=== PATIENT | female | born 1985 | race Caucasian/White ===

== ENCOUNTER 2021-10-17 13:57 | Inpatient (IN) | payer OTHER ==
[2021-10-17 15:18] VITALS: BMI 22.6
[2021-10-17] MEDS ORDERED: NALOXONE HCL (KLOXXADO) 8 MG SPRAY NS PRN (15:42)
[2021-10-17] MEDS ORDERED: cloNIDine HCL 0.1 MG TABLET PO ONE (15:42)
[2021-10-17] MEDS ORDERED: BISMUTH SUBSALICYLATE 524 MG/30 ML PO PRN (15:42)
[2021-10-17] MEDS ORDERED: ACETAMINOPHEN 325 MG TABLET (FP) PO PRN ×2 (15:42)
[2021-10-17] MEDS ORDERED: NICOTINE 10 MG CARTRIDGE (INHALER) IH PRN (15:42)
[2021-10-17] MEDS ORDERED: BUPRENORPHINE HCL 150 MCG, BUPRENORPHINE HCL 75 MCG BC ONE (15:42)
[2021-10-17] MEDS ORDERED: BUPRENORPHINE HCL 150 MCG, BUPRENORPHINE HCL 75 MCG BC PRN (15:42)
[2021-10-17] MEDS ORDERED: MAGNESIUM CITRATE 300 ML BOTTLE PO PRN (15:42)
[2021-10-17] MEDS ORDERED: IBUPROFEN 400 MG TABLET (FP) PO PRN (15:42)
[2021-10-17] MEDS ORDERED: DICYCLOMINE HCL 10 MG CAPSULE PO PRN (15:42)
[2021-10-17] MEDS ORDERED: BENZOCAINE/MENTHOL (CHLORASEPTIC ) LOZENGE MM PRN (15:42)
[2021-10-17] MEDS ORDERED: ONDANSETRON *ODT* 4 MG TABLET SL PRN (15:42)
[2021-10-17] MEDS ORDERED: MAG HYDROX/AL HYDROX/SIMETH 30 ML UNIT-DOSE CUP PO PRN (15:42)
[2021-10-17] MEDS ORDERED: MAGNESIUM HYDROX 2400MG/30ML ORAL SUSPENSION 30 ML CUP PO PRN (15:42)
[2021-10-17] MEDS ORDERED: BUPRENORPHINE HCL 150 MCG FILM BC ONE (15:58)
[2021-10-17] MEDS ORDERED: BUPRENORPHINE HCL 75 MCG FILM BC ONE (16:04)
[2021-10-17] MEDS ORDERED: hydrOXYzine PAMOATE 25 MG CAPSULE (FP) PO ONE (17:00)
[2021-10-17] MEDS: hydrOXYzine PAMOATE 25 MG CAPSULE (FP) PO SCH ×2 (17:06→21:45)
[2021-10-17] MEDS: diazePAM 5 MG TABLET PO PRN (17:28)
[2021-10-17] MEDS: IBUPROFEN 600 MG TABLET (FP) PO PRN (17:29)
[2021-10-17] MEDS: MELATONIN 5 MG TABLETS PO SCH (21:45)
[2021-10-17] MEDS: THIAMINE HCL 100 MG TABLET (FP) PO SCH (21:45)
[2021-10-17] MEDS: cloNIDine HCL 0.1 MG TABLET PO PRN (21:45)
[2021-10-18] MEDS ORDERED: BUPRENORPHINE HCL 150 MCG, BUPRENORPHINE HCL 75 MCG BC PRN
[2021-10-18] MEDS: METHOCARBAMOL 500 MG TABLET PO PRN ×2 (02:12→14:42)
[2021-10-18] MEDS: IBUPROFEN 600 MG TABLET (FP) PO PRN (02:13)
[2021-10-18] MEDS: diazePAM 5 MG TABLET PO PRN ×3 (02:14→18:45)
[2021-10-18] MEDS: cloNIDine HCL 0.1 MG TABLET PO PRN (06:29)
[2021-10-18] MEDS: BUPRENORPHINE HCL 150 MCG, BUPRENORPHINE HCL 75 MCG BC SCH ×2 (06:29→18:11)
[2021-10-18] MEDS: hydrOXYzine PAMOATE 25 MG CAPSULE (FP) PO SCH ×5 (06:32→21:41)
[2021-10-18] MEDS: PRENATAL VITAMINS W/ FOLIC ACID TABLET (FP) PO SCH (10:10)
[2021-10-18 11:41] LABS: HEMATOCRIT 34.2 % (32.4-45.2); HEMOGLOBIN 11.7 GM/dL (10.7-15.3); MCH 30.7 pg (25.7-33.7); MCHC 34.2 g/dl (32.0-36.0); MEAN CELL VOLUME 89.6 fl (80-96); MEAN PLT VOLUME 9.4 fl (7.5-11.1); PLATELET COUNT 244 10^3/uL (134-434); RBC 3.82 M/mm3 (3.60-5.2); RDW 13.8 % (11.6-15.6); WHITE BLOOD COUNT 8.1 K/mm3 (4.0-10.0)
[2021-10-18 11:59] LABS: BLOOD UREA NITROGEN 11.1 mg/dL (7-18); CALCIUM 9.6 mg/dL (8.5-10.1)
[2021-10-18 12:02] LABS: CREATININE 0.7 mg/dL (0.55-1.3)
[2021-10-18 12:05] LABS: BILIRUBIN,TOTAL 0.8 mg/dL (0.2-1); TOT PROT 7.7 g/dl (6.4-8.2)
[2021-10-18] MEDS: LOPERAMIDE HCL 2 MG CAPSULE PO PRN (18:45)
[2021-10-18] MEDS: MELATONIN 5 MG TABLETS PO SCH (21:41)
[2021-10-18] MEDS: THIAMINE HCL 100 MG TABLET (FP) PO SCH (21:41)
[2021-10-19] MEDS: BUPRENORPHINE HCL 450 MCG FILM BC SCH ×2 (05:53→17:54)
[2021-10-19] MEDS: diazePAM 5 MG TABLET PO PRN (05:53)
[2021-10-19] MEDS: hydrOXYzine PAMOATE 25 MG CAPSULE (FP) PO SCH ×5 (05:54→22:47)
[2021-10-19] MEDS: PRENATAL VITAMINS W/ FOLIC ACID TABLET (FP) PO SCH (10:52)
[2021-10-19] MEDS: LOPERAMIDE HCL 2 MG CAPSULE PO PRN (10:53)
[2021-10-19] MEDS: MELATONIN 5 MG TABLETS PO SCH (22:47)
[2021-10-19] MEDS: THIAMINE HCL 100 MG TABLET (FP) PO SCH (22:47)
[2021-10-19] MEDS: METHOCARBAMOL 500 MG TABLET PO PRN (22:48)
[2021-10-20] MEDS: cloNIDine HCL 0.1 MG TABLET PO PRN (02:10)
[2021-10-20] MEDS: BUPRENORPHINE/NALOXONE 4 MG/1 MG FILM PACKET SL SCH ×2 (05:57→17:46)
[2021-10-20] MEDS: hydrOXYzine PAMOATE 25 MG CAPSULE (FP) PO SCH ×6 (05:58→22:22)
[2021-10-20] MEDS: PRENATAL VITAMINS W/ FOLIC ACID TABLET (FP) PO SCH (10:35)
[2021-10-20] MEDS: LOPERAMIDE HCL 2 MG CAPSULE PO PRN (10:37)
[2021-10-20] MEDS: METHOCARBAMOL 500 MG TABLET PO PRN ×2 (15:37→22:22)
[2021-10-20 17:48] VITALS: RESP 18
[2021-10-20] MEDS: MELATONIN 5 MG TABLETS PO SCH (22:21)
[2021-10-20] MEDS: THIAMINE HCL 100 MG TABLET (FP) PO SCH (22:22)
[2021-10-21] MEDS ORDERED: BUPRENORPHINE/NALOXONE 8 MG/2 MG FILM PACKET SL ONE (06:00)
[2021-10-21] MEDS: hydrOXYzine PAMOATE 25 MG CAPSULE (FP) PO SCH ×2 (06:30→10:29)
[2021-10-21 09:15] VITALS: BP 101/58; PULSE 77; TEMP 98.2
[2021-10-21] MEDS: PRENATAL VITAMINS W/ FOLIC ACID TABLET (FP) PO SCH (10:29)
== END 2021-10-21 10:25 | disposition home or self-care (01) | DRG 773 ==
LOC: YASAS 13:57 → Y3N 17:02
PROVIDERS: ADMIT Allergy & Immunology; ATTEND Surgery
PROC: HZ2ZZZZ Detoxification Services for Substance Abuse Treatment (ICD-10-PCS; principal; 2021-10-17)
DX: F11.23 Opioid dependence with withdrawal (principal); M54.59 Other low back pain; G89.29 Other chronic pain; R76.11 Nonspecific reaction to tuberculin skin test without active tuberculosis
CPT/HCPCS: 36415; 80053; 81025; 85027; 86780; 93005; 93010; C9803-CS; Q0162; U0003; U0005

== ENCOUNTER 2022-02-03 10:35 | Inpatient (IN) | payer OTHER ==
[2022-02-03 12:06] VITALS: BMI 22.6
[2022-02-03] MEDS ORDERED: METHOCARBAMOL 500 MG TABLET PO PRN (13:01)
[2022-02-03] MEDS ORDERED: IBUPROFEN 600 MG TABLET (FP) PO PRN (13:01)
[2022-02-03] MEDS ORDERED: BUPRENORPHINE HCL 150 MCG, BUPRENORPHINE HCL 75 MCG BC PRN (13:01)
[2022-02-03] MEDS ORDERED: BENZOCAINE/MENTHOL (CHLORASEPTIC ) LOZENGE MM PRN (13:01)
[2022-02-03] MEDS ORDERED: IBUPROFEN 400 MG TABLET (FP) PO PRN (13:01)
[2022-02-03] MEDS ORDERED: ACETAMINOPHEN 325 MG TABLET (FP) PO PRN ×2 (13:01)
[2022-02-03] MEDS ORDERED: POLYETHYLENE GLYCOL (HEALTHYLAX) 3350 17 GM PACKET PO PRN (13:01)
[2022-02-03] MEDS ORDERED: NALOXONE HCL (KLOXXADO) 8 MG SPRAY NS PRN (13:01)
[2022-02-03] MEDS ORDERED: NICOTINE 10 MG CARTRIDGE (INHALER) IH PRN (13:01)
[2022-02-03] MEDS ORDERED: cloNIDine HCL 0.1 MG TABLET PO ONE (13:01)
[2022-02-03] MEDS ORDERED: MAG HYDROX/AL HYDROX/SIMETH 30 ML UNIT-DOSE CUP PO PRN (13:01)
[2022-02-03] MEDS ORDERED: DICYCLOMINE HCL 10 MG CAPSULE PO PRN (13:01)
[2022-02-03] MEDS ORDERED: ONDANSETRON *ODT* 4 MG TABLET SL PRN (13:01)
[2022-02-03] MEDS ORDERED: MAGNESIUM HYDROX 2400MG/30ML ORAL SUSPENSION 30 ML CUP PO PRN (13:01)
[2022-02-03] MEDS ORDERED: BUPRENORPHINE HCL 150 MCG, BUPRENORPHINE HCL 75 MCG BC ONE (13:01)
[2022-02-03] MEDS ORDERED: LOPERAMIDE HCL 2 MG CAPSULE PO PRN (13:01)
[2022-02-03] MEDS ORDERED: BISMUTH SUBSALICYLATE 524 MG/30 ML PO PRN (13:01)
[2022-02-03] MEDS ORDERED: BUPRENORPHINE HCL 150 MCG FILM BC ONE (13:35)
[2022-02-03] MEDS ORDERED: cloNIDine HCL 0.1 MG TABLET ONE (13:36)
[2022-02-03] MEDS ORDERED: BUPRENORPHINE HCL 75 MCG FILM BC ONE (13:36)
[2022-02-03] MEDS: diazePAM 5 MG TABLET PO PRN (17:26)
[2022-02-03] MEDS: hydrOXYzine PAMOATE 25 MG CAPSULE (FP) PO PRN (19:32)
[2022-02-03] MEDS: cloNIDine HCL 0.1 MG TABLET PO PRN (21:27)
[2022-02-03] MEDS: THIAMINE HCL 100 MG TABLET (FP) PO SCH (21:28)
[2022-02-03] MEDS: MELATONIN 5 MG TABLETS PO SCH (21:28)
[2022-02-04] MEDS ORDERED: BUPRENORPHINE HCL 150 MCG, BUPRENORPHINE HCL 75 MCG BC PRN
[2022-02-04] MEDS: BUPRENORPHINE HCL 150 MCG, BUPRENORPHINE HCL 75 MCG BC SCH ×2 (06:19→17:48)
[2022-02-04] MEDS: cloNIDine HCL 0.1 MG TABLET PO PRN ×2 (06:21→17:48)
[2022-02-04] MEDS: diazePAM 5 MG TABLET PO PRN ×3 (09:59→22:26)
[2022-02-04] MEDS: PRENATAL VITAMINS W/ FOLIC ACID TABLET (FP) PO SCH (10:01)
[2022-02-04 12:32] LABS: HEMATOCRIT 35.9 % (32.4-45.2); HEMOGLOBIN 11.9 GM/dL (10.7-15.3); MCH 30.2 pg (25.7-33.7); MCHC 33.1 g/dl (32.0-36.0); MEAN CELL VOLUME 91.4 fl (80-96); MEAN PLT VOLUME 9.6 fl (7.5-11.1); PLATELET COUNT 238 10^3/uL (134-434); RBC 3.93 M/mm3 (3.60-5.2); RDW 13.7 % (11.6-15.6); WHITE BLOOD COUNT 6.2 K/mm3 (4.0-10.0)
[2022-02-04 12:33] LABS: ALBUMIN 3.7 g/dl (3.4-5.0)
[2022-02-04 12:37] LABS: CALCIUM 9.2 mg/dL (8.5-10.1)
[2022-02-04 12:38] LABS: BLOOD UREA NITROGEN 8.9 mg/dL (7-18)
[2022-02-04 12:41] LABS: CREATININE 0.6 mg/dL (0.55-1.3)
[2022-02-04 12:42] LABS: TOT PROT 7.3 g/dl (6.4-8.2)
[2022-02-04 12:43] LABS: BILIRUBIN,TOTAL 0.7 mg/dL (0.2-1)
[2022-02-04] MEDS: hydrOXYzine PAMOATE 25 MG CAPSULE (FP) PO PRN (14:42)
[2022-02-04] MEDS: MELATONIN 5 MG TABLETS PO SCH (22:25)
[2022-02-04] MEDS: THIAMINE HCL 100 MG TABLET (FP) PO SCH (22:25)
[2022-02-05] MEDS ORDERED: BUPRENORPHINE HCL 450 MCG FILM BC SCH (06:00)
[2022-02-05 08:51] VITALS: BP 121/77; PULSE 101; RESP 18; TEMP 96.9
[2022-02-05] MEDS: PRENATAL VITAMINS W/ FOLIC ACID TABLET (FP) PO SCH (11:30)
[2022-02-06] MEDS ORDERED: BUPRENORPHINE/NALOXONE 4 MG/1 MG FILM PACKET SL SCH (06:00)
[2022-02-07] MEDS ORDERED: BUPRENORPHINE/NALOXONE 8 MG/2 MG FILM PACKET SL ONE (06:00)
== END 2022-02-05 10:05 | disposition left against medical advice (07) | DRG 770 ==
LOC: SUATTDRO 10:35 → YASAS 10:35 → Y3N 13:02
PROVIDERS: ADMIT Allergy & Immunology; ATTEND Surgery
PROC: HZ2ZZZZ Detoxification Services for Substance Abuse Treatment (ICD-10-PCS; principal; 2022-02-03)
DX: F11.23 Opioid dependence with withdrawal (principal)
CPT/HCPCS: 36415; 80053; 81025; 85027; 86780; C9803-CS; U0003; U0005